=== PATIENT | female | born 1950 | race Caucasian/White ===

== ENCOUNTER → 2018-03-14 | Outpatient (CLI) | payer MEDICARE ==
[~2018-03-14] MED LIST: HYDROCHLOROTHIA25 MG PO; LEVOTHYROXINE50 MCG PO; MULTIVITAMINS1 EAC7 PO
--- NOTE | 2018-03-14 09:26 | Diagnostic Imaging Report ---
PROCEDURE:X-RAY ABDOMEN - KUB COMPARISON:KUB 06/14/17. INDICATIONS:FOLLOW UP KIDNEY STONES FINDINGS: Right kidney is obscured by overlying bowel gas, limiting evaluation for stones. A 4 mm calcification projects over the right lower pole kidney, which may represent a stone or enteric contents. No additional calcifications are seen overlying the urinary system. Cholelithiasis is again noted. Non-obstructive bowel gas pattern. No acute bony findings. CONCLUSION: Limited evaluation for right renal stones due to overlying bowel gas. A 4 mm calcification overlying the right lower pole kidney, may reflect stone or overlying colonic contents. No calcifications identified over the left kidney or ureters. Cholelithiasis. Dictated by: ERICK SOTO M.D. on 03/14/2018 at 9:30 Electronically approved by: ERICK SOTO M.D. on 03/14/2018 at 9:30
== END ==
LOC: RAD 08:00
PROVIDERS: ATTEND Urology
DX: N20.0 Calculus of kidney (principal)
CPT/HCPCS: 74018

== ENCOUNTER → 2018-03-26 | Outpatient (CLI) | payer MEDICARE ==
--- NOTE | 2018-03-26 10:11 | Diagnostic Imaging Report ---
PROCEDURE: CT ABDOMEN AND PELVIS WITHOUT CONTRAST TECHNIQUE: The abdomen and pelvis were scanned utilizing a multidetector helical scanner from the diaphragm to the lesser trochanter. Oral 250 cc of water was administered. No IV contrast was administered per protocol. Coronal and sagittal multiplanar reformations were obtained. COMPARISON: CT Abdomen/Pelvis 12/08/09 and KUB 03/14/18. INDICATIONS: RENAL CALCULUS FINDINGS: ABSENCE OF INTRAVENOUS CONTRAST DECREASES SENSITIVITY FOR DETECTION OF FOCAL LESIONS AND VASCULAR PATHOLOGY. LOWER THORAX: Subsegmental atelectasis at the lung bases. Coronary calcifications. HEPATOBILIARY: No focal hepatic lesions. No biliary ductal dilatation. Cholelithiasis without CT evidence of cholecystitis. SPLEEN: No splenomegaly. PANCREAS: No focal masses or ductal dilatation. ADRENALS: No adrenal nodules. KIDNEYS/URETERS: No hydronephrosis or solid mass lesions. Punctate 2 mm right lower pole renal stone. PELVIC ORGANS/BLADDER: Unremarkable. PERITONEUM / RETROPERITONEUM: No free air or fluid. LYMPH NODES: No lymphadenopathy. VESSELS: Atherosclerotic calcifications of the abdominal aorta and branch vessels. 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 GI TRACT: No distention or wall thickening. BONES AND SOFT TISSUES: No acute bony findings. Degenerative disc changes at L5-S1. IMPRESSION: Punctate 2 mm right lower pole renal stone. No evidence of ureteral stone. 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 Follow-up renal vascular duplex ultrasound can be considered in 6-12 months to assess for stability. Dictated by: ERICK SOTO M.D. on 03/26/2018 at 10:14 Electronically approved by: ERICK SOTO M.D. on 03/26/2018 at 10:14
== END ==
LOC: CT 07:33
PROVIDERS: ATTEND Urology
DX: N20.0 Calculus of kidney (principal)
CPT/HCPCS: 74176

== ENCOUNTER → 2018-10-14 | Day surgery (SDC) | payer MEDICARE ==
[2018-10-13 11:24] LABS: BASOPHILS % 0.4 % (0.0-1.0); EOSINOPHILS # (AUTO) 0.1 (0.0-0.4); EOSINOPHILS % 1.5 % (0.0-6.0); HEMATOCRIT 43.5 % (34.2-44.1); LYMPHOCYTES # (AUTO) 2.7 (1.0-3.2); LYMPHOCYTES % 29.1 % (18.0-39.1); MEAN CORPUSCULAR HEMOGLOBIN 30.1 pg (28-32); MEAN CORPUSCULAR HGB CONC 34.5 g/dL (31-35); MEAN CORPUSCULAR VOLUME 87.2 fL (81-99); MONOCYTES # (AUTO) 0.8 (0.2-0.8); MONOCYTES % 8.4 % (4.4-11.3); NEUTROPHILS # (AUTO) 5.5 (2.1-6.9); NEUTROPHILS % 60.4 % (38.7-80.0); PLATELET COUNT 284 x10e3/uL (140-360); RED BLOOD COUNT 4.99 x10e6/uL (3.6-5.1); RED CELL DISTRIBUTION WIDTH 12.8 % (11.7-14.4)
[2018-10-13 11:33] LABS: INR 0.9
[2018-10-13 11:41] LABS: ALANINE AMINOTRANSFERASE 18 IU/L (0-55); ALBUMIN 4.3 g/dL (3.5-5.0); ALBUMIN/GLOBULIN RATIO 1.5 (0.8-2.0); ALKALINE PHOSPHATASE 98 IU/L (40-150); ANION GAP 10.7 mmol/L (8-16); BLOOD UREA NITROGEN 11 mg/dL (7-26); BUN/CREATININE RATIO 14 (6-25); CARBON DIOXIDE 30 mmol/L (22-29); CHLORIDE 100 mmol/L (98-107); CREATININE, SERUM 0.76 mg/dL (0.57-1.11); EST GLOMERULAR FILTRATION RATE > 60 ML/MIN (60-); GLUCOSE 105 mg/dL (74-118); POTASSIUM 3.7 mmol/L (3.5-5.1); SODIUM 137 mmol/L (136-145)
[2018-10-14] VITALS (9 sets, daily range): BP systolic 140–160; BP diastolic 82–100
[~2018-10-14] VITALS: Ht 172.7 cm; Wt 71.2 kg
[~2018-10-14] MED LIST changes: +ALPRAZOLAM 0.5 MG TAB ONE; +DIPHENHYDRAMINE HCL 25 MG CAP ONE; +FENTANYL CITRATE/PF 100MCG/2 ML INJ ONE; +HEPARIN SOD/SOD CHLORIDE 2,000 ML ONE; +IOPAMIDOL 370 MG/ML 200 ML INFUS..BTL INJ ONE; +LIDOCAINE HCL 1% LOCAL INJ 20 ML VIAL ONE; +MIDAZOLAM HCL 2 MG/2 ML VIAL ONE; +SODIUM CHLORIDE 0.9% 1000ML 1,000 ML ONE
--- OUTSIDE RECORDS SUMMARY | 2018-10-14 08:22 | XMS REPORT ---
Author [facility] Address Unknown Phone Unavailable Care Team Providers Care Uptwister Tender Name Role Phone JEANIE VAZQUEZ Unavailable Unavailable Problems This patient has no known problems. Allergies, Adverse Reactions, Alerts This patient has no known allergies or adverse reactions. Medications This patient has no known medications. Results Test Description Test Time Test Comments Text Results Atomic Results Result Comments CT ABDOMEN/PELVIS WO 2018-03-26 10:14:00 [place] [address] Patient Name: RUT BUCIO MR #: [id number] : 1950 Age/Sex: 67/F Req #: [id number] Adm Physician: Ordered by: JEANIE VAZQUEZ MD Report #: [id number] Location: CT Room/Bed: Procedure: [id number] CT/CT ABDOMEN/PELVIS WO Exam Date: 03/26/18 Exam Time: 0740 REPORT STATUS: Signed PROCEDURE: CT ABDOMEN AND PELVIS WITHOUT CONTRAST TECHNIQUE: The abdomen and pelvis were scanned utilizing a multidetector helical scanner from the diaphragm to the lesser trochanter. Oral 250 cc of water was administered. No IV contrast was administered per protocol. Coronal and sagittal multiplanar reformations were obtained. COMPARISON: CT Abdomen/Pelvis 12/08/09 and KUB 03/14/18. INDICATIONS: RENAL CALCULUS FINDINGS: ABSENCE OF INTRAVENOUS CONTRAST DECREASES SENSITIVITY FOR DETECTION OF FOCAL LESIONS AND VASCULAR PATHOLOGY. LOWER THORAX: Subsegmental atelectasis at the lung bases. Coronary calcifications. HEPATOBILIARY: No focal hepatic lesions. No biliary ductal dilatation. Cholelithiasis without CT evidence of cholecystitis. SPLEEN: No splenomegaly. PANCREAS: No focal masses or ductal dilatation. ADRENALS: No adrenal nodules. KIDNEYS/URETERS: No hydronephrosis or solid mass lesions. Punctate 2 mm right lower pole renal stone. PELVIC ORGANS/BLADDER: Unremarkable. PERITONEUM / RETROPERITONEUM: No free air or fluid. LYMPH NODES: No lymphadenopathy. VESSELS: Atherosclerotic calcifications of the abdominal aorta and branch vessels. 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 GI TRACT: No distention or wall thickening. BONES AND SOFT TISSUES: No acute bony findings. Degenerative disc changes at L5-S1. IMPRESSION: Punctate 2 mm right lower pole renal stone. No evidence of ureteral stone. 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 Follow-up renal vascular duplex ultrasound can be considered in 6-12 months to assess for stability. Dictated by: ERICK SOTO M.D. on 03/26/2018 at 10:14 Electronically approved by: ERICK SOTO M.D. on 03/26/2018 at 10:14 Dictated By: ERICK SOTO MD 1014 Transcribed By: BRENTON on 03/26/18 1014 COPY TO: JEANIE VAZQUEZ MD [facility] (KUB) 2018-03-14 09:30:00 [place] [address] Patient Name: RUT BUCIO MR #: [id number] : 1950 Age/Sex: 67/F Req #: [id number] Adm Physician: Ordered by: JEANIE VAZQUEZ MD Report #: [id number] Location: [facility] Room/Bed: Procedure: [id number] DX/ABDOMEN-1VIEW (KUB) Exam Date: 03/14/18 Exam Time: 814 REPORT STATUS: Signed PROCEDURE: X-RAY ABDOMEN - KUB COMPARISON: KUB 06/14/17. INDICATIONS: FOLLOW UP KIDNEY STONES FINDINGS: Right kidney is obscured by overlying bowel gas, limiting evaluation for stones. A 4 mm calcification projects over the right lower pole kidney, which may represent a stone or enteric contents. No additional calcifications are seen overlying the urinary system. Cholelithiasis is again noted. Non-obstructive bowel gas pattern. No acute bony findings. CONCLUSION: Limited evaluation for right renal stones due to overlying bowel gas. A 4 mm calcification overlying the right lower pole kidney, may reflect stone or overlying colonic contents. No calcifications identified over the left kidney or ureters. Cholelithiasis. Dictated by: ERICK SOTO M.D. on 03/14 at 9:30 Electronically approved by: ERICK SOTO M.D. on 03/14/2018 at 9:30 Dictated By: ERICK SOTO MD 9 Transcribed By: BRENTON on 03/14/18929 COPY TO: JEANIE VAZQUEZ MD ABDOMEN-1VIEW (KUB) [place] [address] Patient Name: RUT BUCIO MR #: [id number] : 1950 Age/Sex: 66/F Req #: [id number] Adm Physician: Ordered by: JEANIE VAZQUEZ MD Report #: [id number] Location: OR Room/Bed: Procedure: [id number] DX/ABDOMEN-1VIEW (KUB) Exam Date: 06/14/17 Exam Time: 0715 REPORT STATUS: Signed PROCEDURE: ABDOMEN-1VIEW (KUB) TECHNIQUE: Supine AP abdomen totaling 2 radiographs INDICATION: ESWL COMPARISON: [facility], DX, ABDOMEN-1VIEW (KU), 04/22/2012, 14:14. Patients [facility], DX, ABDOMEN-1VIEW (KU), 03/29/2017, 8:06. FINDINGS: See conclusion CONCLUSION: 1. Calcifications at the right inferior pole measuring 0.3 and 0.4 cm 2. Ill-defined cluster of calcifications in the right upper quadrant in keeping with cholelithiasis. 3. No calcifications over the left kidney or ureters. 4. Normal bowel gas pattern. 5. Intact skeleton. Dictated by: Edgar Rogel M.D. on 06/14/2017 at 7:44 Electronically approved by: Edgar Rogel M.D. on 06/14/2017 at 7:44 Dictated By: EDGAR ROGEL MD 3 Transcribed By: BRENTON on 06/14/17743 COPY TO: JEANIE VAZQUEZ MD CHEST 2 VIEWS [place] [address] Patient Name: RUT BUCIO MR #: [id number] : 1950 Age/Sex: 66/F Req #: [id number] Adm Physician: Ordered by: WESLEY CORDON MD Report #: [id number] Location: OR Room/Bed: Procedure: [id number] DX/CHEST 2 VIEWS Exam Date: 06/10/17 Exam Time: 1415 REPORT STATUS: Signed PROCEDURE: CHEST 2 VIEWS TECHNIQUE: PA and lateral chest INDICATION: Preoperative evaluation for kidney surgery COMPARISON: None. FINDINGS: Lungs are clear and symmetrically inflated. No pleural effusions. Normal h eart size. Calcified aortic arch with minimal descending aortic tortuosity. Intact skeleton. CONCLUSION: No acute abnormality. Dictated by: Edgar Rogel M.D. on 06/10/2017 at 14:41 Electronically approved by: Edgar Rogel M.D. on 06/10/2017 at 14:41 Dictated By: EDGAR ROGEL MD 1441 Transcribed By: BRENTON on 06/10/17 1441 COPY TO: WESLEY CORDON MD
--- NOTE | 2018-10-14 19:01 | Operative Report ---
DATE OF PROCEDURE: 10/14/2018 SURGEON: Pramod Urbina MD CARDIAC DIRECTOR TITLE PROCEDURE NOTE PROCEDURES PERFORMED: 1. Abdominal aorta cath replacement and abdominal aortogram. 2. Bilateral selective renal angiograms. 3. Deployment of right groin Vascade closure device. COMPLICATIONS: None. RECOMMENDATIONS: Medical therapy. PROCEDURE IN DETAIL: Access obtained to the right femoral artery. A 6-Cypriot sheath was placed. Abdominal aortogram was performed with a minimal plaque in the abdominal aorta, calcification of iliac arteries bilaterally. Selective cannulation of bilateral renal arteries demonstrated no evidence of renal artery stenosis. A small 5 mm renal artery aneurysm was present in the intracortical portion of the left renal artery, not amenable to endovascular intervention nor needed. Mesenteric artery had normal flow. Right groin was repaired using Vascade closure device. The patient discharged home same day. Pramod Urbina MD KSB/MODL /[id number]
== END | disposition home or self-care (01) ==
LOC: CATH LAB 08:20 → EDSTATUS 10:30
PROVIDERS: ATTEND Internal Medicine Interventional Cardiology
DX: I72.2 Aneurysm of renal artery (principal); E07.9 Disorder of thyroid, unspecified; Z88.6 Allergy status to analgesic agent; Z01.812 Encounter for preprocedural laboratory examination
CPT/HCPCS: 36252; 36415; 75625; 80053; 85025; 85610; C1760; C1769; J2001; J2250; J7030; Q9967

== ENCOUNTER → 2019-02-03 | Outpatient (CLI) | payer MEDICARE ==
[~2019-02-03] MED LIST changes: -ALPRAZOLAM 0.5 MG TAB ONE; -DIPHENHYDRAMINE HCL 25 MG CAP ONE; -FENTANYL CITRATE/PF 100MCG/2 ML INJ ONE; -HEPARIN SOD/SOD CHLORIDE 2,000 ML ONE; -IOPAMIDOL 370 MG/ML 200 ML INFUS..BTL INJ ONE; -LIDOCAINE HCL 1% LOCAL INJ 20 ML VIAL ONE; -MIDAZOLAM HCL 2 MG/2 ML VIAL ONE; -SODIUM CHLORIDE 0.9% 1000ML 1,000 ML ONE
--- NOTE | 2019-02-03 08:05 | Diagnostic Imaging Report ---
Exam: Abdominal film Clinical History: Kidney stone Comparison: Report for CT abdomen and pelvis 12/08/2009 was reviewed. No images available. DISCUSSION: No suspicious calcifications project over the renal shadows or expected ureteral courses, though evaluation of the kidneys is limited secondary to overlying bowel contents. The bowel gas pattern is nonobstructive. Regional skeletal structures are intact. IMPRESSION: No plain film evidence of urolithiasis. Signed by: Dr. Zana Palomino M.D. on 02/03/2019 8:02 AM
== END ==
LOC: RAD 07:11
PROVIDERS: ATTEND Urology
DX: N20.0 Calculus of kidney (principal)
CPT/HCPCS: 74018

== ENCOUNTER → 2019-02-23 | Outpatient (CLI) | payer MEDICARE ==
--- NOTE | 2019-02-23 08:26 | Diagnostic Imaging Report ---
Exam: Right knee 3 views History: Pain, effusion Comparison: None. Findings: No acute, displaced fracture or dislocation. 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 Trace nonspecific suprapatellar effusion. 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 Trace suprapatellar joint effusion is suspected. Signed by: Dr. Zana Palomino M.D. on 02/23/2019 8:23 AM
== END ==
LOC: RAD 07:30
PROVIDERS: ATTEND Family Medicine Geriatric Medicine
DX: M25.561 Pain in right knee (principal); M25.461 Effusion, right knee

== ENCOUNTER → 2019-07-07 | Outpatient (CLI) | payer MEDICARE ==
--- NOTE | 2019-07-07 08:48 | Diagnostic Imaging Report ---
Abdominal radiograph Clinical History: Urinary calculi Comparison: 02/03/2019 DISCUSSION: No abnormal calcifications are identified renal shadows or the expected courses of the ureters. The bowel gas pattern is nonobstructive. Regional skeletal structures are intact. IMPRESSION: No radiographic evidence of nephroureterolithiasis. Signed by: Joshua Gonzalez MD on 07/07/2019 8:45 AM
== END ==
LOC: RAD 08:07
PROVIDERS: ATTEND Urology
DX: Z87.442 Personal history of urinary calculi (principal)
CPT/HCPCS: 74018

== ENCOUNTER → 2019-12-21 | Outpatient (CLI) | payer MEDICARE ==
--- NOTE | 2019-12-21 10:17 | Diagnostic Imaging Report ---
Exam: KUB - 2 views Indication: Urinary calculi Comparison: KUB of 02/03/2019, CT abdomen and pelvis of 03/26/2018 Findings: No radiographically apparent renal calculi. Crescentic calcification overlying the mid pole left renal silhouette appears to be vascular calcification from the prior CT of 03/26/2018. Calcified gallstones in the gallbladder. No acute osseous injury. Nonobstructive bowel gas pattern. No free air. Impression: No radiographically apparent renal calculi. Cholelithiasis. Signed by: Lorenza Monge MD on 12/21/2019 10:14 AM
--- NOTE | 2019-12-21 10:46 | Diagnostic Imaging Report ---
EXAM: Renal Ultrasound INDICATION: ^MICROSCOPIC HEMATURIA COMPARISON: None TECHNIQUE: Transverse and longitudinal images of the kidneys and bladder were obtained. FINDINGS: Right Kidney: Length: 11.8 cm Appearance: Normal echogenicity. Collecting system: No hydronephrosis Stones: None Cyst/Mass: None Left Kidney: Length: 11.1 cm Appearance: Normal echogenicity. Collecting system: No hydronephrosis Stones: None Cyst/Mass: None Bladder: No mass or calculi. Right ureteral jet visualized. Prevoid volume estimate of 59 cc. IMPRESSION: No hydronephrosis or renal calculi. Signed by: Lorenza Monge MD on 12/21/2019 10:43 AM
== END ==
LOC: US 08:40
PROVIDERS: ATTEND Urology
DX: R31.21 Asymptomatic microscopic hematuria (principal); K80.20 Calculus of gallbladder without cholecystitis without obstruction; Z87.442 Personal history of urinary calculi
CPT/HCPCS: 74018; 76770

== ENCOUNTER → 2021-07-17 | Outpatient (CLI) | payer MEDICARE | LOC: US 07:45 | PROVIDERS: ATTEND Urology | DX: N20.0 Calculus of kidney (principal); R31.21 Asymptomatic microscopic hematuria | CPT/HCPCS: 74018; 76770 ==

== ENCOUNTER 2021-08-27 14:12 | Emergency (ER) | payer MEDICARE ==
[~2021-08-27] VITALS: Ht 172.7 cm; Wt 71.2 kg
[2021-08-27] MEDS ORDERED: CEFTRIAXONE 1 GM in SODIUM CHLORIDE 0.9% 50ML 50 ML IV ONE (15:30)
[2021-08-27] MEDS ORDERED: SODIUM CHLORIDE 0.9% 1000ML 1,000 ML IV SCH (15:30)
[2021-08-27] MEDS ORDERED: ONDANSETRON HCL INJ 2MG/ML 2ML 2 MG/ML VIAL IV STA (15:31)
[2021-08-27] MEDS ORDERED: KETOROLAC TROMETHAMINE 30 MG/ML VIAL IV ONE (15:45)
[2021-08-27] MEDS ORDERED: SODIUM CHLORIDE 0.9% 1000ML 1,000 ML ONE (15:47)
[2021-08-27] MEDS ORDERED: CEFTRIAXONE 1 GM VIAL ONE (16:40)
[2021-08-27] MEDS ORDERED: CEFDINIR300 MG PO (18:18)
[2021-08-27] MEDS ORDERED: LEVSIN-SL0.125 MG SL (18:23)
== END 2021-08-27 18:53 | disposition home or self-care (01) ==
LOC: FSED 14:30
DX: R30.0 Dysuria (principal); N39.0 Urinary tract infection, site not specified; R10.30 Lower abdominal pain, unspecified; K80.20 Calculus of gallbladder without cholecystitis without obstruction; N83.201 Unspecified ovarian cyst, right side; R11.0 Nausea; M54.50 Low back pain, unspecified; D72.829 Elevated white blood cell count, unspecified; E03.9 Hypothyroidism, unspecified; Z87.442 Personal history of urinary calculi
CPT/HCPCS: 74176; 80048; 80076; 81003; 85025; 87086; 99284; J0696; J1885; J2405; J7030

== ENCOUNTER → 2022-09-17 | Outpatient (CLI) | payer MEDICARE ==
[~2022-09-17] MED LIST changes: +CEFDINIR300 MG PO; +LEVSIN-SL0.125 MG SL
== END ==
LOC: RAD 08:07
PROVIDERS: ATTEND Urology
DX: N20.0 Calculus of kidney (principal)
CPT/HCPCS: 74018

== ENCOUNTER → 2024-06-03 | Outpatient (REF) | payer MEDICARE | LOC: RAD 09:01 | PROVIDERS: ATTEND Urology | DX: N20.0 Calculus of kidney (principal) | CPT/HCPCS: 74018 ==

== ENCOUNTER → 2025-01-25 | Outpatient (REF) | payer MEDICARE | LOC: RAD 08:43 | PROVIDERS: ATTEND Urology | DX: N20.0 Calculus of kidney (principal) | CPT/HCPCS: 74018 ==